=== PATIENT | female | born 1990 | race African-American/Black ===

== ENCOUNTER 2017-10-03 11:31 | Outpatient (CLI) | payer OTHER, SELFPAY ==
[2017-10-03 12:31] LABS: Appearance Urine UA CLEAR; Bilirubin Urine UA NEGATIVE (NEGATIVE); Color Urine UA YELLOW; Glucose Urine UA NEGATIVE (Normal); Ketones Urine UA NEGATIVE (NEGATIVE); Leukocyte Esterase Urine UA NEGATIVE (NEGATIVE); Nitrite Urine UA Negative (Negative); Occult Blood Urine UA NEGATIVE (Negative); Protein Urine UA NEGATIVE (Negative); Specific Gravity Urine UA 1.015 (1.000-1.035); Urobilinogen Urine UA 0.2 E.U./dL (0.2)
--- NOTE | 2017-10-03 13:00 | PM.OBTRLD ---
Visit Information Visit Information Date of evaluation: 10/03/17 Primary OB Provider: Pia Dye Reason for Evaluation: Yes other Comments/Additional reasons for admission: abdominal pain Objective Labs Labs: Laboratory Results - last 24 hr 10/03/17 12:00 Urine Color Yellow Urine Appearance Clear Urine pH 7.0 Ur Specific [place] 1.015 Urine Protein Negative Urine Glucose (UA) Negative Urine Ketones Negative Urine Occult Blood Negative Urine Nitrate Negative Urine Bilirubin Negative Urine Urobilinogen 0.2 Ur Leukocyte Esterase Negative Evaluation Evaluation Baseline heart rate: 140 Variability: Moderate (11-25) monitor accelerations: Present monitor decelerations: Absent Uterine Contraction Intensity: Mild Category of Tracing: I Laboratory results: Laboratory Tests 10/03/17 12:00 Urine Color Yellow Urine Appearance Clear Urine pH 7.0 Ur Specific [place] 1.015 Urine Protein Negative Urine Glucose (UA) Negative Urine Ketones Negative Urine Occult Blood Negative Urine Nitrate Negative Urine Bilirubin Negative Urine Urobilinogen 0.2 Ur Leukocyte Esterase Negative Diagnosis, Plan/Disposition Final Diagnosis (1) 35 weeks gestation of : Current Visit: Yes Status: Acute Plan/Disposition Plan: Reactive NST, no labor, UA negative Follow up in clinic as scheduled.
== END 2017-10-03 13:18 | disposition home or self-care (01) ==
LOC: LABOR 13:01 → OB 10-05 10:12
PROVIDERS: Family Medicine; Visit Provider Obstetrics & Gynecology
DX: O26.893 Other specified pregnancy related conditions, third trimester (principal); R10.9 Unspecified abdominal pain; Z3A.35 35 weeks gestation of pregnancy
CPT/HCPCS: 59025; 59050; 81003; G0378; G0379

== ENCOUNTER → 2017-10-10 16:08 | Outpatient (CLI) | payer OTHER, SELFPAY ==
[2017-10-11 13:17] LABS: Strep Grp B PCR NEG for Grp B Strep
== END ==
PROVIDERS: Visit Provider Family Medicine
DX: Z3A.36 36 weeks gestation of pregnancy (principal)
CPT/HCPCS: 87653

== ENCOUNTER 2017-10-17 11:25 | Outpatient (CLI) | payer OTHER, SELFPAY ==
--- NOTE | 2017-10-17 12:44 | PM.OBTRLD ---
Visit Information Visit Information Date of evaluation: 10/17/17 Primary OB Provider: Pia Dye On-call OB Provider: Lenore Fair Reason for Evaluation: Yes rule out labor [facility] Social History marital status: household members: spouse Smoking Status: Never smoker alcohol intake: former substance use type: does not use Evaluation Evaluation Baseline heart rate: 140 Variability: Moderate (11-25) monitor accelerations: Present monitor decelerations: Absent Category of Tracing: I Cervical dilation (cm): 0 Cervical effacement (%): 0 station: -3 Diagnosis, Plan/Disposition Final Diagnosis (1) 37 weeks gestation of : Current Visit: Yes Status: Acute Plan/Disposition Plan: Patient comes in concerned about abdominal and pelvic cramping. No contractions on monitor and cervix is long and closed. Patient was reassured routine precautions reviewed with the patient. She has a follow-up appointment on Sunday. OB Disposition: home
--- NOTE | 2017-10-17 12:47 | P.TNLD_ITS ---
Visit Information Visit Information Date of evaluation: 10/17/17 Primary OB Provider: Pia Dye On-call OB Provider: Lenore Fair Reason for Evaluation: Yes rule out labor [facility] Social History marital status: household members: spouse Smoking Status: Never smoker alcohol intake: former substance use type: does not use Evaluation Evaluation Baseline heart rate: 140 Variability: Moderate (11-25) monitor accelerations: Present monitor decelerations: Absent Category of Tracing: I Cervical dilation (cm): 0 Cervical effacement (%): 0 station: -3 Diagnosis, Plan/Disposition Final Diagnosis (1) 37 weeks gestation of : Current Visit: Yes Status: Acute Plan/Disposition Plan: Patient comes in concerned about abdominal and pelvic cramping. No contractions on monitor and cervix is long and closed. Patient was reassured routine precautions reviewed with the patient. She has a follow-up appointment on Sunday. OB Disposition: home
== END 2017-10-17 11:50 | disposition home or self-care (01) ==
LOC: OB 14:14
PROVIDERS: Visit Provider Family Medicine
DX: Z34.03 Encounter for supervision of normal first pregnancy, third trimester (principal); Z3A.37 37 weeks gestation of pregnancy
CPT/HCPCS: 59025; G0378; G0379

== ENCOUNTER 2017-11-05 15:33 | Outpatient (CLI) | payer OTHER, SELFPAY ==
--- NOTE | 2017-11-05 17:22 | PM.OBTRLD ---
Visit Information Visit Information Date of evaluation: 11/05/17 Primary OB Provider: Pia Dye Reason for Evaluation: Yes non-stress test non-stress test reason: other (abdominal pain) [facility] Social History marital status: household members: spouse Smoking Status: Never smoker alcohol intake: former substance use type: does not use Evaluation Evaluation Baseline heart rate: 135 Variability: Moderate (11-25) monitor accelerations: Present monitor decelerations: Absent Category of Tracing: I Diagnosis, Plan/Disposition Final Diagnosis (1) 40 weeks gestation of : Current Visit: No Status: Acute Plan/Disposition Plan: 27 year old at 40 weeks here with abdominal pain. Normal BP, ruled out pre-eclampsia. Reactive NST. Patient wishing to be induced. Will discuss postdates induction at appointment in two days.
--- NOTE | 2017-11-05 17:25 | P.TNLD_ITS ---
Visit Information Visit Information Date of evaluation: 11/05/17 Primary OB Provider: Pia Dye Reason for Evaluation: Yes non-stress test non-stress test reason: other ( abdominal pain) [facility] Social History marital status: household members: spouse Smoking Status: Never smoker alcohol intake: former substance use type: does not use Evaluation Evaluation Baseline heart rate: 135 Variability: Moderate (11-25) monitor accelerations: Present monitor decelerations: Absent Category of Tracing: I Diagnosis, Plan/Disposition Final Diagnosis (1) 40 weeks gestation of : Current Visit: No Status: Acute Plan/Disposition Plan: 27 year old at 40 weeks here with abdominal pain. Normal BP, ruled out pre- eclampsia. Reactive NST. Patient wishing to be induced. Will discuss postdates induction at appointment in two days.
== END 2017-11-05 16:42 | disposition home or self-care (01) ==
LOC: OB 11-07 13:00
PROVIDERS: PCP Family Medicine; Visit Provider Family Medicine
DX: Z34.03 Encounter for supervision of normal first pregnancy, third trimester (principal); Z3A.40 40 weeks gestation of pregnancy; G43.909 Migraine, unspecified, not intractable, without status migrainosus
CPT/HCPCS: 59025; G0378; G0379

== ENCOUNTER 2017-11-11 18:17 | Inpatient (IN) | payer OTHER, SELFPAY ==
[2017-11-11] MEDS: miSOPROStol 25 MCG TABLET VAG (20:00)
[2017-11-11] MEDS: LACTATED RINGERS 1,000 ML 100 ML IV (20:16)
[2017-11-11 21:08] LABS: Add Manual Diff / Slide Review NO; Basophils Percent Auto 0.4 % (0-2); Eosinophils Percent Auto 1.4 % (2-4); Hematocrit 37.9 % (36-46); Hemoglobin 12.9 g/dL (12.0-16.0); Lymphocytes Percent Auto 17.2 % (25-40); Mean Corpuscular HGB Conc 34.1 % (30-36); Mean Corpuscular Hemoglobin 29.6 PG (26-34); Mean Corpuscular Volume 86.7 fL (80-100); Monocytes Percent Auto 8.6 % (3-14); Neutrophils Absolute Auto 7400 /uL (3000-5900); Neutrophils Percent Auto 72.4 % (50-75); Platelet Count 274 X10^3/uL (150-400); Red Blood Cell Count 4.37 X10^6/uL (4.0-5.2); Red Cell Distribution Width 14.2 % (11.6-14.8); White Blood Cell Count 10.2 X10^3/uL (4.5-11.0)
[2017-11-11 21:16] VITALS: BP 118/64
[2017-11-11] MEDS: ZOLPIDEM 5 MG TABLET PO (22:07)
[2017-11-12] MEDS: LACTATED RINGERS 1,000 ML 100 ML IV ×2 (06:22→08:22)
--- NOTE | 2017-11-12 07:09 | PM.OBHP.1 ---
OB HPI Date/Time Date of admission: 11/12/17 Date Patient Seen: 11/12/17 Time Patient Seen: 07:25 History of Present Illness Chief complaint: labor & delivery : 2 Para: 0 Estimated Date of Delivery: 11/03/17 Estimated Gestational Age (weeks): 41w2d Narrative: Leatha Caraballo is a 27 year old female, at 41w2d. Transfer of care from the [facility] at 36 weeks of . Patient received regular care. Patient came in last night for cervical ripening and progressed to active labor after one dose of cytotec. SROM occurred at 3 AM today with clear fluid. Patient comfortable with epidural. 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) Preadmission Labs Blood type: A (+) positive -: Antibody screen: negative, GBS status: negative, HBsAG: negative, HIV: negative and RPR/VDLR: negative -: Chlamydia screen: not detected and Gonorrhea screen: not detected -: Rubella: immune HCT: 38.8 PAP: Normal Integrated screen: Normal Urine: Negative 1 hr GTT: 135 Narrative: Prior (ies) History: SAB 6 weeks Evaluation Evaluation Baseline heart rate: 125 Variability: Moderate (11-25) monitor accelerations: Present monitor decelerations: Early Contraction Frequency (minutes): 5 Uterine Contraction Intensity: Moderate Category of Tracing: I Cervical dilation (cm): 5 Cervical effacement (%): 100 station: 0 Laboratory results: Laboratory Tests 11/11/17 11/11/17 21:00 21:00 WBC 10.2 RBC 4.37 Hgb 12.9 Hct 37.9 MCV 86.7 MCH 29.6 MCHC 34.1 RDW 14.2 Plt Count 274 Neut % (Auto) 72.4 Lymph % (Auto) 17.2 L Amador % (Auto) 8.6 Eos % (Auto) 1.4 L Baso % (Auto) 0.4 Neut # (Auto) 7400 H Blood Type A Positive Antibody Screen Negative [facility] Social History marital status: household members: spouse Smoking Status: Never smoker alcohol intake: former substance use type: does not use Meds Home Medications Medication Instructions Recorded Confirmed Type Vitamin 1 tab PO DAILY 10/03/17 10/03/17 History Allergies Allergy/AdvReac Type Severity Reaction Status Date / Time ketorolac [From Toradol] Allergy Severe Swelling Verified 10/03/17 13:03 of Lip/Tongue/Throat Review of Systems Review of Systems All systems reviewed & are unremarkable except as noted in HPI and below Exam Const General: cooperative and healthy appearing HENIL Head: normal to inspection Ears: hearing grossly normal bilaterally Nose: external nose normal Face and sinus: normal facial exam Mouth: oral mucosae normal Eyes General: appearance normal, both eyes and all related structures Neck Neck: normal visual inspection Resp Effort & Inspection: normal respiratory effort Auscultation: clear to auscultation bilaterally Cardio Rate: regular rate Rhythm: regular rhythm Heart Sounds: S1 normal and S2 normal Manual OB Exam: dilated 5, effaced fully and station 0 Presentation: vertex Estimated Weight (lbs): 8 Amniotic Fluid: clear Neuro General: alert, awake and oriented x3 Extrem General: normal to inspection and edema (trace bilaterally) Objective Labs Result Diagrams: 11/11/17 21:00 Labs: Laboratory Results - last 24 hr 11/11/17 11/11/17 21:00 21:00 WBC 10.2 RBC 4.37 Hgb 12.9 Hct 37.9 MCV 86.7 MCH 29.6 MCHC 34.1 RDW 14.2 Plt Count 274 Neut % (Auto) 72.4 Lymph % (Auto) 17.2 L [place] % (Auto) 8.6 Eos % (Auto) 1.4 L Baso % (Auto) 0.4 Neut # (Auto) 7400 H Blood Type A Positive Antibody Screen Negative Assessment and Plan Plan: Plan: 27 year old at 41w2d, GBS neg, s/p one dose of Cytotec now in active labor. SROM clear at 3 AM. Contraction pattern is somewhat irregular with coupling intermittently. Plan - Epidural working well - Start pitocin - Frequent position changes with peanut ball
[2017-11-12] MEDS: OXYTOCIN PREMIX 30 UNIT/500 ML PLAST..BAG IV (07:40)
--- NOTE | 2017-11-12 11:06 | PM.OBPNLAB ---
Date/Time Date Patient Seen: 11/12/17 Time Patient Seen: 10:20 Pain Control Pain control: tolerating well and epidural Pelvic Exam Dilation (cm): 7 Effacement (%): 100 station: 0 Amniotic membrane status: Ruptured Contractions Monitor mode: External Pitocin rate (mU/min): 9 Contraction pattern: Irregular (q2-5 min with coupling) Status status: Category l Heart Rate Baseline: 135 Monitor Accelerations: Present Monitor Decelerations: Absent Monitor Variability: Moderate Assessment and Plan Assessment: active labor and induction ongoing Plan: continuous present management Comments: Encouraged frequent position changes. Suspect occiput posterior.
--- NOTE | 2017-11-12 15:14 | PM.OBPRVD ---
Delivery date: 11/12/17 Induction method: per misoprostol protocol Delivery augmentation: pitocin Delivery monitor: external FHT Route of delivery: Laceration description: Periurethral - 1st Degree Estimated blood loss (mL): 350 Anesthesia type: Epidural Narrative: Patient is a 27-year-old at 41w2d weeks who gave on 11/12/17 at 14:20. TREMAYNE: 11/03/17 Hospital problems: 41 weeks of Epidural anesthesia STAGE I: Labor Patient presented to the center for postdates induction and received one dose of Cytotec. Active labor began at 12:00 AM on 11/12/17. Patient requested an epidural. SROM at 3:00 AM with clear fluid. Contractions became irregular several hours later so pitocin was started with improvement in contraction pattern. Patient was complete at 12:52 PM. FHT were category 1 and 2 with periods of minimal variability and rare late decelerations. STAGE II: Delivery Second stage of labor lasted 1 hour and 28 minutes. Presentation was JASMYN with a nuchal cord which was reduced. Delivery was complicated by a 30 second shoulder dystocia which resolved with Miguel maneuver and suprapubic pressure though it took several seconds to deliver the infant after appearance of the anterior shoulder. A female infant was placed on mother's abdomen. Apgars were 6 and 9 at 1 and 5 minutes. STAGE III: Placenta/Cord The third stage of labor lasted 3 minutes. Placenta delivered after active management and appeared intact with a three vessel cord. Pitocin bolus given after delivery of placenta. There was a very small first degree periurethral laceration with was repaired with a single stitch of 4-0 vicryl due to bleeding. Fundus was firm after delivery and hemostasis achieved. EBL: 350 mL. Needle and sponge counts were correct. The vagina was inspected and no items were left in situ.
[2017-11-12] MEDS: ACETAMINOPHEN 325 MG TABLET 650 MG PO (17:55)
[2017-11-13] MEDS: OXYCODONE/ACETAMINOPHEN 5/325 TABLET 1 TAB PO ×2 (08:47→14:00)
[2017-11-13] MEDS: PRENATAL VIT,CALC/IRON/FOLIC 1 TABLET 1 TAB PO (08:48)
[2017-11-13] MEDS: DOCUSATE 250 MG CAPSULE PO (08:48)
--- NOTE | 2017-11-13 13:02 | P.DS_ITS ---
Discharge Providers Date of admission: 11/11/17 18:17 Primary care physician: Pia Dye DO Consults: 11/12/17 16:17 Consult to Compensation And Benefits Analyst Routine Comment: Discharge provider: Pia Dye DO Summary Date Patient Seen: 11/13/17 Time Patient Seen: 13:00 Hospital Course: 27-year-old now 1 status post spontaneous vaginal delivery at 41 weeks and 2 days on 11/12/17. Patient was brought in for cervical ripening the night of for post dates. She received one dose of Cytotec and progressed into active labor. Patient had an epidural for pain control. Required Pitocin augmentation of labor. There was a brief shoulder dystocia at delivery lasting approximately 30 seconds which was relieved with Miguel maneuver and suprapubic pressure. Apgars were six and nine at one and 5 minutes. Infant did well after delivery. A small periurethral laceration was repaired due to bleeding. course has been uncomplicated. 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 Patient is severely allergic to NSAIDs so received Percocet for pain control. initiated, recommended consultation in the clinic as an outpatient. Patient has ambulated, voided and stooled without difficulty. Exam Temperature 98.8? blood pressure 128/78 heart rate 88 respirations 16 General: Awake and alert, no acute distress. HEENT: NCAT, EOMI, moist oral mucosa CV: Regular rate and rhythm, no murmurs, rubs or gallops Lungs: CTAB, no wheezes, rales, or rhonchi Abdomen: Soft, nontender; bowel tones active; uterus firm 1 cm below umbilicus Extremities: Warm, no edema, 2+ pedal pulses bilaterally Patient counseled to call for fevers, severe pain or bleeding through more than a pad an hour. Follow up with Dr. Dye in clinic in six weeks. Peripartum Data Infant Delivery Method: Natural Vaginal Laceration description: Periurethral - 1st Degree complications: none Discharge Diagnosis (1) 41 weeks gestation of : Status: Acute (2) (spontaneous vaginal delivery): Status: Acute (3) History of epidural anesthesia: Status: Acute Status at Discharge Functional status at discharge: independent ambulation Overall status at discharge: patient is back to baseline Time Spent with Patient Total time spent providing and/or coordinating discharge services: Objective Labs Result Diagrams: 11/11/17 21:00 Discharge Plan Discharge Plan Patient Disposition: Home Discharge Med Rec/Prescriptions Prescriptions: New oxycodone-acetaminophen 5-325 mg Tablet 1 tab PO Q4HR PRN (Reason: pain) Qty: 20 RF: 0 docusate sodium 250 mg Capsule 250 mg PO DAILY Qty: 30 RF: 0 Continue Vitamin 1 tab PO DAILY RF: 0 Follow up/Referrals: Pia Dye DO [Primary Care Provider] - 6 Weeks Discharge Data Primary Care Provider: Pia Dye Attending Provider: Pia Dye Admit Date/Time: 11/11/17 18:17
[2017-11-13 16:17] VITALS: BP 118/64; PULSE 80; RESP 18; TEMP 36.6
== END 2017-11-13 18:15 | disposition home or self-care (01) | DRG 775 ==
PROVIDERS: Admitting Provider Family Medicine; PCP Family Medicine; Visit Provider Family Medicine
DX: O48.0 Post-term pregnancy (principal); Z3A.41 41 weeks gestation of pregnancy; O69.81X0 Labor and delivery complicated by cord around neck, without compression, not applicable or unspecified; Z37.0 Single live birth; O66.0 Obstructed labor due to shoulder dystocia
CPT/HCPCS: 01967; 59050; 59410; 85025; 86850; 86900; 86901; G0379; J2590

== ENCOUNTER 2017-12-17 14:52 | Emergency (ER) | payer OTHER, SELFPAY ==
[2017-12-17 15:00] VITALS: BP 108/70; PULSE 81; RESP 20; TEMP 36.6; O2SAT 95
--- NOTE | 2017-12-17 16:44 | ED_ITS ---
HPI - Abdominal Pain General Chief Complaint: Abdominal Pain Stated Complaint: constiptation x2 wks Time Seen by Provider: 12/17/17 16:44 Source: patient Mode of arrival: ambulatory Limitations: no limitations History of Present Illness HPI narrative: Patient is an otherwise healthy 27-year-old female who is 5 weeks . Is breast feeding. She states that for the past several days she has had constipation issues. She states she feels like she needs to go to the bathroom however it is painful for her to go to the bathroom. Does have some bright red blood. She states she has had a hemorrhoid which she was able to reduce. No nausea vomiting. Has developed some abdominal pain lower over the past couple days. Related Data Previous Rx's Medication Instructions Recorded sodium phosphates [Fleet Enema] 118 ml [place] DAILY PRN #133 ml 12/17/17 Allergies Allergy/AdvReac Type Severity Reaction Status Date / Time ketorolac [From Toradol] Allergy Severe Swelling Verified 10/03/17 13:03 of Lip/Tongue/Throat Review of Systems Constitutional Denies fatigue, Denies fever(s) and Denies headache(s) ENT Ears, Nose, Mouth, and Throat: Denies headache(s) Cardiovascular Denies chest pain and Denies dyspnea Respiratory Denies dyspnea Gastrointestinal Gastrointestinal: Reports abdominal pain, Reports constipation, Denies diarrhea , Denies nausea and Denies vomiting Genitourinary Denies dysuria and Denies vaginal discharge Musculoskeletal Reports back pain (Lower back), Denies myalgias and Denies arthralgias Integumentary/Breasts Denies lesions and Denies rash Neurologic Denies headache(s) Endocrine Denies fatigue Hematologic/Lymphatic Denies easy bleeding and Denies easy bruising [facility] Medical History Healthy adult (Acute) Spontaneous vaginal delivery (Resolved) Social History marital status: household members: spouse Smoking Status: Never smoker alcohol intake: former substance use type: does not use Exam Initial Vital Signs Initial Vital Signs: Vital Signs Temperature 97.9 F 12/17/17 15:00 Pulse Rate 81 12/17/17 15:00 Respiratory Rate 20 12/17/17 15:00 Blood Pressure 108/70 12/17/17 15:00 Pulse Oximetry 95 12/17/17 15:00 Const General: cooperative, healthy appearing, comfortable, well developed, well groomed and No acute distress Orientation: alert, awake and oriented x3 HENMT Head: normal to inspection and normocephalic Resp Effort & Inspection: normal respiratory effort GI Inspection: non-distended Palpation: soft, No firm and No tender Back/Spine/Pelvis Back: No CVA tenderness Skin Lesions: no lesions Rashes: no rashes Neuro General: alert, awake and oriented x3 Extrem General: normal to inspection and capillary refill normal Psych Appearance: grossly normal and well kempt Course Vital Signs - 8 hr 12/17/17 15:00 Temperature 97.9 F Pulse Rate 81 Respiratory Rate 20 Blood Pressure 108/70 Pulse Oximetry 95 MDM - Abdominal Pain MDM Narrative Medical decision making narrative: Has a benign abdominal exam. Discussed the options with the patient to include oral laxatives versus enemas. We did discuss that she could have an enema here in the emergency department. We also discussed that she could be manually disimpacted. After this discussion the patient opted to be discharged with a prescription for an enema and try this at home prior to any interventions here in the emergency department. Her history and physical exam was consistent with constipation. Doubt other intra- abdominal surgical pathology to include bowel obstructions. Will hold on a CT scan for now. The patient was given return precautions. She expressed understanding and agreement with plan. Discharge Plan Departure Patient Disposition: Home Clinical Impression: Constipation Discharge Date/Time: 12/17/17 17:15 Interventions: ED Discharge Assessment Last Done: 12/17/17 17:14 Instructions: Constipation (Alternative Therapy), Constipation Activity Restrictions/Additional Instructions: Like we discussed here in the emergency department make sure that you stay hydrated. I would also make sure that you add the stool softeners and or a laxative by mouth. Take the enema as directed. Return to the emergency department for any new or worsening symptoms Prescriptions: New sodium phosphates [Fleet Enema] 19-7 gram/118 mL enema 118 ml [place] DAILY PRN (Reason: constipation) Qty: 133 RF: 0
== END 2017-12-17 17:15 | disposition home or self-care (01) ==
PROVIDERS: Emergency Provider Emergency Medicine; PCP Family Medicine
DX: K59.00 Constipation, unspecified (principal)
CPT/HCPCS: 99282

== ENCOUNTER 2018-01-18 15:55 | Emergency (ER) | payer OTHER, SELFPAY ==
[2018-01-18 15:58] VITALS: BP 110/85; PULSE 90; RESP 16; TEMP 36.7; O2SAT 99; BMI 30.8
--- NOTE | 2018-01-18 16:44 | PC.NURSE ---
Pt reports has pain along spine for about 2 inches right over pt had epidural during recent . Reports spasms are intermittent and extend to the left of spinal column.
[2018-01-18 17:30] VITALS: BP 110/72; PULSE 76; RESP 18; TEMP 36.7; O2SAT 100
--- NOTE | 2018-01-18 17:47 | ED_ITS ---
HPI - Back Pain/Injury <Dari Perdue PA-C - Last Filed: 01/18/18 22:00> General Chief Complaint: Back Pain/Injury Stated Complaint: MIDDLE BACK PAIN Time Seen by Provider: 01/18/18 17:18 Source: patient Mode of arrival: ambulatory Limitations: no limitations History of Present Illness HPI Narrative: This healthy 27-year-old female who delivered a baby girl 11/12 complains of persistent pain since then at epidural insertion site. She states that pain is present all the time, but she also gets spasms on the left side of the area that are worse when she lies down at night, or with bending and those tend to be very sharp and crampy. She states that pain and spasms have remained localized this whole time and she has not had any acute worsening or radiation into her extremities. She has not had any fever and cannot tell that she has had any swelling or rash. She has never had back pain prior. She denies any urinary symptoms or bowel changes. She has not started using contraception again yet, states not impossible that she could be . She states that her PCP evaluated this and has prescribed Percocet which helped a lot when she takes it, but she is concerned about a significant underlying problem and does not want to continue taking it if there is something that needs to be treated. She states that the only other symptom she has had is some ringing in her ears at times. Related Data Previous Rx's Medication Instructions Recorded oxycodone-acetaminophen [Percocet] 1 tab PO Q6H PRN #3 tab 01/18/18 Allergies Allergy/AdvReac Type Severity Reaction Status Date / Time ketorolac [From Toradol] Allergy Severe Swelling Verified 01/18/18 16:31 of Lip/Tongue/Throat Review of Systems <Dari Perdue PA-C - Last Filed: 01/18/18 22:00> Review of Systems All systems reviewed & are unremarkable except as noted in HPI and below Exam <Dari Perdue PA-C - Last Filed: 01/18/18 22:00> Narrative Exam Narrative: GENERAL APPEARANCE: Patient standing and holding her baby, in no distress PULMONARY: Lungs clear to auscultation bilaterally CV: Regular rhythm regular without murmur, normal S1 and S2, no S3 or S4 MUSCULOSKELETAL: point tender over the mid thoracic spine. No rash or lesions. She has a little bit of tenderness over the corresponding left thoracic paraspinal musculature which may be minimally enlarged compared to left. No circumscribed edema. No tenderness elsewhere over the spine. She has full range of motion of the trunk. Full range of motion of the extremities and normal gait. NEUROLOGIC: Extremities are warm and pink, sensation is grossly intact Initial Vital Signs Initial Vital Signs: Vital Signs Temperature 98.0 F 01/18/18 15:58 Pulse Rate 90 01/18/18 15:58 Respiratory Rate 16 01/18/18 15:58 Blood Pressure 110/85 01/18/18 15:58 Pulse Oximetry 99 01/18/18 15:58 <Torres Fitch DO - Last Filed: 01/18/18 22:24> Initial Vital Signs Initial Vital Signs: Vital Signs Temperature 98.0 F 01/18/18 15:58 Pulse Rate 90 01/18/18 15:58 Respiratory Rate 16 01/18/18 15:58 Blood Pressure 110/85 01/18/18 15:58 Pulse Oximetry 99 01/18/18 15:58 Course <Dari Perdue PA-C - Last Filed: 01/18/18 22:00> Additional Information: patient has not had any acute change in her pain today. We advised MRI after I reviewed concerns with Dr. Fitch. Patient initially agreed to this, but when I advised it would be a 2 hr wait for MRI she stated that she did not want to wait to have this. Since she has not had any acute changes, nor any new symptoms such as fever or swelling per her history, advised this would be reasonable but needs follow-up with Dr. Dye early next week to discuss continued pain and plan further workup. we also placed lidocaine patch and I did give her just a few Percocet for the weekend since she had been using these previously with at least temporary success. She agreed to return if any acutely worsening symptoms Orders Ordered: ED Orders 01/18/18 17:55 XR thoracic spine 3V Stat 01/18/18 18:07 MR thoracic spine wo con Stat Discontinued Medications Lidocaine (Lidoderm) 1 each TOP NOW ONE Stop: 01/18/18 17:56 Last Admin: 01/18/18 18:30 Dose: 1 each Oxycodone/Acetaminophen (Percocet 5/325) 1 tab PO NOW ONE Stop: 01/18/18 18:09 Last Admin: 01/18/18 18:29 Dose: 1 tab Vital Signs - 8 hr 01/18/18 15:58 01/18/18 17:30 01/18/18 18:52 Temperature 98.0 F 98.0 F 98.0 F Pulse Rate 90 76 93 H Respiratory Rate 16 18 16 Blood Pressure 110/85 Blood Pressure [Left Arm] 110/72 111/74 Pulse Oximetry 99 100 99 <Torres Fitch DO - Last Filed: 01/18/18 22:24> Orders Ordered: ED Orders 01/18/18 17:55 XR thoracic spine 3V Stat 01/18/18 18:07 MR thoracic spine wo con Stat Discontinued Medications Lidocaine (Lidoderm) 1 each TOP NOW ONE Stop: 01/18/18 17:56 Last Admin: 01/18/18 18:30 Dose: 1 each Oxycodone/Acetaminophen (Percocet 5/325) 1 tab PO NOW ONE Stop: 01/18/18 18:09 Last Admin: 01/18/18 18:29 Dose: 1 tab Vital Signs - 8 hr 01/18/18 15:58 01/18/18 17:30 01/18/18 18:52 Temperature 98.0 F 98.0 F 98.0 F Pulse Rate 90 76 93 H Respiratory Rate 16 18 16 Blood Pressure 110/85 Blood Pressure [Left Arm] 110/72 111/74 Pulse Oximetry 99 100 99 MDM - Back Pain/Injury <Dari Perdue PA-C - Last Filed: 01/18/18 22:00> Lab Data Point of Care Testing Test Results Negative Urine Dip Bedside Urine Glucose Negative Bedside Urine Bilirubin - Negative Bedside Urine Ketone - Negative Urine Specific [place] 1.025 Bedside Urine Occult Blood - Negative Bedside Urine pH 6.0 Bedside Urine Protein - Negative Bedside Urine Urobilinogen - Negative Bedside Urine Nitrite - Negative Bedside Urine Leukocytes - Negative Esterase Imaging Data thoracic: Radiologist's impression: [address] [address] XRay Report Signed Patient: Archie Caraballo#: [id number] : 1990Acct:[id number] Age/Sex: 27 / FDate of Service: 01/18/18 Loc: ED Accession Number: [id number] Procedure: XR thoracic spine 3V Ordering Provider: Dari Perdue P.A-C PROCEDURE: XR THORACIC SPINE 3V INDICATIONS: thoracic pain TECHNIQUE: 3 views of the thoracic spine were acquired. COMPARISON: None. FINDINGS: Bones: No fractures or dislocations. No suspicious bony lesions. Mild diffuse endplate sclerosis. Mild right dextrocurvature Soft tissues: No paravertebral stripe thickening. IMPRESSION: Mild right dextrocurvature No fracture. Dictated by: Bhargav Quijano M.D. on 01/18/2018 at 18:33 Approved by: Bhargav Quijano M.D. on 01/18/2018 at 18:36 <Torres Fitch DO - Last Filed: 01/18/18 22:24> Lab Data Point of Care Testing Test Results Negative Urine Dip Bedside Urine Glucose Negative Bedside Urine Bilirubin - Negative Bedside Urine Ketone - Negative Urine Specific [place] 1.025 Bedside Urine Occult Blood - Negative Bedside Urine pH 6.0 Bedside Urine Protein - Negative Bedside Urine Urobilinogen - Negative Bedside Urine Nitrite - Negative Bedside Urine Leukocytes - Negative Esterase Discharge Plan Departure Patient Disposition: Home Clinical Impression: Chronic thoracic spine pain Discharge Date/Time: 01/18/18 19:13 Interventions: ED Discharge Assessment Last Done: 01/18/18 19:11 Instructions: DI for Back Spasm Activity Restrictions/Additional Instructions: since you have been taking Percocet and that has been helpful, I have prescribed a few for you to have if needed over the weekend. Remember not to take that and drive as it may make you sleepy. Please try adding over-the- counter 4% lidocaine patches (there are multiple brands of this, such as salon pas). we have recommended an MRI today, but since you did not want to wait for that and pain has not acutely worsened, please call Dr. Dye's office on Sunday and let them know you were seen in the ED and need follow-up. you should return as we talked about over the weekend if you have any sudden acute worsening of your pain, or new symptoms such as swelling or fever Prescriptions: New oxycodone-acetaminophen [Percocet] 5-325 mg tablet 1 tab PO Q6H PRN (Reason: pain) Qty: 3 RF: 0 Referrals: Pia Dye DO [Primary Care Provider] - <Torres Fitch DO - Last Filed: 01/18/18 22:24> Cosign ED Attending Cosignature Attestation: I was immediately available in the department for consultation. Documentation has been reviewed. I agree with assessment and plan.
--- NOTE | 2018-01-18 17:55 | DI.RAD.S_ITS ---
PROCEDURE: XR THORACIC SPINE 3V INDICATIONS: thoracic pain TECHNIQUE: 3 views of the thoracic spine were acquired. COMPARISON: None. FINDINGS: Bones: No fractures or dislocations. No suspicious bony lesions. Mild diffuse endplate sclerosis. Mild right dextrocurvature Soft tissues: No paravertebral stripe thickening. IMPRESSION: Mild right dextrocurvature No fracture. Dictated by: Bhargav Quijano M.D. on 01/18/2018 at 18:33 Approved by: Bhargav Quijano M.D. on 01/18/2018 at 18:36
[2018-01-18] MEDS: OXYCODONE/ACETAMINOPHEN 5/325 TABLET 1 TAB PO (18:29)
[2018-01-18] MEDS: LIDOCAINE PATCH 1 EACH ADH..PATCH TOP (18:30)
[2018-01-18 18:52] VITALS: BP 111/74; PULSE 93; RESP 16; TEMP 36.7; O2SAT 99
== END 2018-01-18 19:13 | disposition home or self-care (01) ==
PROVIDERS: Emergency Provider Internal Medicine; PCP Family Medicine
DX: M54.6 Pain in thoracic spine (principal); G89.29 Other chronic pain
CPT/HCPCS: 72072; 81003; 81025; 99282; 99284

== ENCOUNTER 2018-05-15 08:11 | Emergency (ER) | payer OTHER, SELFPAY ==
[2018-05-15 08:23] VITALS: BP 120/70; PULSE 82; RESP 18; TEMP 36.6; O2SAT 98; BMI 30.2
--- NOTE | 2018-05-15 08:59 | ED_ITS ---
HPI - Nausea/Vomiting/Diarrhea General Chief complaint: Nausea/Vomiting/Diarrhea Stated complaint: stomach flu Time Seen by Provider: 05/15/18 08:27 Source: patient Mode of arrival: ambulatory Limitations: no limitations History of Present Illness HPI Narrative: Patient is an otherwise healthy 27-year-old female here for evaluation of approximately 24 hr of diarrhea and then approximately 12 hr of multiple episodes of vomiting. No recent travel. No recent antibiotic use. Has not tried anything for her symptoms. She is here today with generalized abdominal pain and headache. She states she vomited whenever she tries to eat anything. No fevers. Related Data Home Medications Medication Instructions Recorded Confirmed PNV cmb#95-ferrous fumarate-FA 1 tab PO DAILY 05/15/18 05/15/18 [] Trinessa 1 tab PO QPM 05/15/18 05/15/18 diclofenac sodium 1 applic TOPICAL DIRECTED 05/15/18 05/15/18 ibuprofen 600 mg PO TID PRN 05/15/18 05/15/18 Previous Rx's Medication Instructions Recorded ondansetron 4 mg PO Q6-8H PRN #10 tab 05/15/18 Allergies Allergy/AdvReac Type Severity Reaction Status Date / Time ketorolac [From Toradol] Allergy Severe Swelling Verified 02/01/18 11:48 of Lip/Tongue/Throat Review of Systems Constitutional Denies fever(s) and Reports headache(s) ENT Ears, Nose, Mouth, and Throat: Reports headache(s) Cardiovascular Denies chest pain and Denies dyspnea Respiratory Denies dyspnea Gastrointestinal Gastrointestinal: Reports abdominal pain, Reports diarrhea, Reports nausea and Reports vomiting Genitourinary Denies dysuria and Denies vaginal discharge Musculoskeletal Denies myalgias and Denies arthralgias Integumentary/Breasts Denies rash Neurologic Denies behavioral changes and Reports headache(s) Psychiatric Denies behavioral changes Hematologic/Lymphatic Denies easy bleeding and Denies easy bruising PFSH Social History marital status: household members: spouse Smoking Status: Never smoker alcohol intake: former substance use type: does not use Exam Initial Vital Signs Initial Vital Signs: Vital Signs Temperature 97.8 F 05/15/18 08:23 Pulse Rate 82 05/15/18 08:23 Respiratory Rate 18 05/15/18 08:23 Blood Pressure 120/70 05/15/18 08:23 Pulse Oximetry 98 05/15/18 08:23 Const General: cooperative, healthy appearing, comfortable, well developed, well groomed and No acute distress Orientation: alert, awake and oriented x3 HENMT Head: normal to inspection and normocephalic Resp Effort & Inspection: normal respiratory effort Auscultation: clear to auscultation bilaterally Cardio Rate: regular rate Rhythm: regular rhythm GI Inspection: non-distended Palpation: soft, No firm, No guarding, No rigid and tender (Generalized tenderness) Skin Lesions: no lesions Rashes: no rashes Neuro General: alert and awake Cognition: normal cognition Speech: speech normal Extrem General: normal to inspection and capillary refill normal Psych Appearance: grossly normal and well kempt Course Orders Ordered: ED Orders 05/15/18 08:52 Complete Blood Count AUTO DIFF Stat Comprehensive Metabolic Panel Stat Lipase Stat Discontinued Medications Sodium Chloride (Normal Saline 0.9%) 1,000 mls @ 1,000 mls/hr IV BOLUS ONE Stop: 05/15/18 09:58 Last Infusion: 05/15/18 10:24 Dose: 0 mls/hr Admin: 05/15/18 09:18 Dose: 1,000 mls/hr Ondansetron HCl (Zofran) 4 mg IV NOW ONE Stop: 05/15/18 09:00 Last Admin: 05/15/18 09:17 Dose: 4 mg Vital Signs - 8 hr 05/15/18 08:23 Temperature 97.8 F Pulse Rate 82 Respiratory Rate 18 Blood Pressure 120/70 Pulse Oximetry 98 MDM - Nausea/Vomiting/Diarrhea Lab Data Attestation: I reviewed the patient's lab results. Result diagrams: 05/15/18 08:52 05/15/18 08:52 Lab Results 05/15/18 05/15/18 Range/Units 08:52 08:52 WBC 6.3 (4.5-11.0) X10^3/uL RBC 4.63 (4.0-5.2) X10^6/uL Hgb 13.4 (12.0-16.0) g/dL Hct 40.3 (36-46) % MCV 87.2 (80-100) fL MCH 28.9 (26-34) PG MCHC 33.1 (30-36) % RDW 14.0 (11.6-14.8) % Plt Count 386 (150-400) X10^3/uL Neut % (Auto) 63.0 (50-75) % Lymph % (Auto) 23.9 L (25-40) % [place] % (Auto) 11.8 (3-14) % Eos % (Auto) 0.7 L (2-4) % Baso % (Auto) 0.6 (0-2) % Neut # (Auto) 3900 (5772-7949) /uL Lymph # (Auto) 1500 (4459-1741) /uL [place] # (Auto) 700 (0-900) /uL Eos # (Auto) 0 (0-450) /uL Baso # (Auto) 0 (0-100) /uL Sodium 140 (137-145) mmol/L Potassium 3.6 (3.4-5.1) mmol/L Chloride 101 (98-107) mmol/L Carbon Dioxide 30 (22-32) mmol/L BUN 10 (7-17) mg/dL Creatinine 0.80 (0.52-1.04) mg/dL Estimated GFR > 60.0 (>60) mL/min BUN/Creatinine Ratio 12.5 (6-22) Glucose 81 (70-100) mg/dL Calcium 8.7 (8.4-10.2) mg/dL Total Bilirubin 0.2 (0.2-1.3) mg/dL AST 26 (14-36) IU/L ALT 28 (9-52) IU/L Alkaline Phosphatase 61 (38-126) U/L Total Protein 7.7 (6.3-8.2) g/dL Albumin 4.3 (3.5-5.0) g/dL Globulin 3.4 (1.7-4.1) g/dL Albumin/Globulin Ratio 1.3 (1.0-2.8) Lipase 49 (23-300) U/L [facility] Narrative Medical decision making narrative: Patient states that she does feel better afte r the fluids. Her headache is gone. She has tolerated small amounts of fluids. She did have a loose bowel movement here in the ER. Will send home with a prescription for Zofran. She was also instructed on the use of Imodium/loperamide if needed. She was given return precautions. Will hold on further workup for now. She expressed understanding and agreement with plan. Discharge Plan Departure Patient Disposition: Home Clinical Impression: Nausea & vomiting Qualifiers: Vomiting type: unspecified Vomiting Intractability: non-intractable Qualified Code(s): R11.2 - Nausea with vomiting, unspecified Diarrhea Qualifiers: Diarrhea type: unspecified type Qualified Code(s): R19.7 - Diarrhea, unspecified Instructions: Diarrhea, DI for Vomiting -- Adult Activity Restrictions/Additional Instructions: Use the nausea medication as needed. Like we discussed you can purchase [id number] Imodium/loperamide and use it as directed for any diarrhea. Return to the emergency department for any new or worsening symptoms Prescriptions: New ondansetron 4 mg tablet,disintegrating 4 mg PO Q6-8H PRN (Reason: nausea and vomiting) Qty: 10 RF: 0 No Action ibuprofen 600 mg tablet 600 mg PO TID PRN (Reason: pain) RF: 0 diclofenac sodium 1 % gel 1 applic Topical DIRECTED RF: 0 PNV cmb#95-ferrous fumarate-FA [] 28 mg iron- 800 mcg Tablet 1 tab PO DAILY RF: 0 Trinessa 1 tab PO QPM RF: 0 Referrals: Pia Dye DO [Primary Care Provider] -
[2018-05-15 09:05] LABS: Add Manual Diff / Slide Review NO; Basophils Absolute Auto 0 /uL (0-100); Basophils Percent Auto 0.6 % (0-2); Eosinophils Absolute Auto 0 /uL (0-450); Eosinophils Percent Auto 0.7 % (2-4); Hematocrit 40.3 % (36-46); Hemoglobin 13.4 g/dL (12.0-16.0); Lymphocytes Absolute Auto 1500 /uL (1100-4500); Lymphocytes Percent Auto 23.9 % (25-40); Mean Corpuscular HGB Conc 33.1 % (30-36); Mean Corpuscular Hemoglobin 28.9 PG (26-34); Mean Corpuscular Volume 87.2 fL (80-100); Monocytes Absolute Auto 700 /uL (0-900); Monocytes Percent Auto 11.8 % (3-14); Neutrophils Absolute Auto 3900 /uL (1500-7000); Platelet Count 386 X10^3/uL (150-400); Red Blood Cell Count 4.63 X10^6/uL (4.0-5.2); White Blood Cell Count 6.3 X10^3/uL (4.5-11.0)
[2018-05-15 09:11] LABS: Alanine Aminotransferase 28 IU/L (9-52); Albumin 4.3 g/dL (3.5-5.0); Albumin Globulin Ratio 1.3 (1.0-2.8); Alkaline Phosphatase 61 U/L (38-126); Aspartate Aminotransferase 26 IU/L (14-36); BUN Creatinine Ratio 12.5 (6-22); Bilirubin Total 0.2 mg/dL (0.2-1.3); Blood Urea Nitrogen 10 mg/dL (7-17); Calcium 8.7 mg/dL (8.4-10.2); Carbon Dioxide 30 mmol/L (22-32); Chloride 101 mmol/L (98-107); Estimated Glomerular Filt Rate > 60.0 mL/min (>60); Globulin 3.4 g/dL (1.7-4.1); Glucose 81 mg/dL (70-100); HEMOLYSIS < 15 (0-50); Lipase 49 U/L (23-300); Potassium 3.6 mmol/L (3.4-5.1); Sodium 140 mmol/L (137-145); Total Protein 7.7 g/dL (6.3-8.2)
[2018-05-15] MEDS: ONDANSETRON 4 MG/2 ML INJ IV (09:17)
[2018-05-15] MEDS: SODIUM CHLORIDE 0.9% 1,000 ML 1000 ML IV (09:18)
[2018-05-15 10:38] VITALS: BP 114/66; PULSE 80; RESP 18; O2SAT 100
[2018-05-15 11:01] VITALS: BP 104/67; PULSE 74; RESP 18; TEMP 36.4; O2SAT 99
== END 2018-05-15 11:01 | disposition home or self-care (01) ==
PROVIDERS: Emergency Provider Emergency Medicine; PCP Family Medicine
DX: R11.2 Nausea with vomiting, unspecified (principal); R19.7 Diarrhea, unspecified
CPT/HCPCS: 36591; 80053; 83690; 85025; 96361; 96374; 99283; 99284; J2405

== ENCOUNTER 2018-05-20 15:13 | Emergency (ER) | payer OTHER, SELFPAY ==
[2018-05-20 15:28] VITALS: BP 112/77; PULSE 95; RESP 16; TEMP 37.2; O2SAT 96
--- NOTE | 2018-05-20 18:04 | PC.NURSE ---
Patient reports pain in left pointer finger, no injury or trauma. Mild swelling noted, no pain in joints. Denies fever, chills or any other symptoms
--- NOTE | 2018-05-20 18:22 | ED.SKABFB ---
HPI - Skin/Abscess/Foreign Bdy <Dari Perdue PA-C - Last Filed: 05/20/18 22:02> General Chief complaint: Skin/Abscess/Foreign Body Stated complaint: index finger left hand is swollen and hurting Time Seen by Provider: 05/20/18 17:30 Source: patient Mode of arrival: ambulatory Limitations: no limitations History of Present Illness HPI narrative: This 27 year old female comes to ED due to 2 day history of pain between her right 2nd and 3rd fingers. She states that this is only in the space between the fingers, denies any joint pain or swelling there or elsewhere in the hand. She denies any redness. She denies any bite or wound. She has not had fever. She denies any pain in other areas or joints. She is not breast feeding currently. Denies any possibility of Related Data Home Medications Medication Instructions Recorded Confirmed PNV cmb#95-ferrous fumarate-FA 1 tab PO DAILY 05/15/18 05/20/18 [] Trinessa 1 tab PO QPM 05/15/18 05/20/18 diclofenac sodium 1 applic TOPICAL DIRECTED 05/15/18 05/20/18 ibuprofen 600 mg PO TID PRN 05/15/18 05/20/18 Previous Rx's Medication Instructions Recorded ondansetron 4 mg PO Q6-8H PRN #10 tab 05/15/18 meloxicam [Mobic] 15 mg PO DAILY #10 tab 05/20/18 Allergies Allergy/AdvReac Type Severity Reaction Status Date / Time ketorolac [From Toradol] Allergy Severe Swelling Verified 02/01/18 11:48 of Lip/Tongue/Throat Review of Systems <Dari Perdue PA-C - Last Filed: 05/20/18 22:02> Review of Systems ROS Unobtainable: All systems reviewed & are unremarkable except as noted in HPI and below PFSH <Dari Perdue PA-C - Last Filed: 05/20/18 22:02> Medical History Healthy adult (Acute) Spontaneous vaginal delivery (Resolved) Social History marital status: household members: spouse Smoking Status: Never smoker alcohol intake: former substance use type: does not use Exam <JEOVANNY Ford Last Filed: 05/20/18 22:02> Narrative Exam Narrative: GENERAL APPEARANCE: Patient sitting comfortably, in no distress. LUNGS: Clear to auscultation bilaterally. HEART: Rate and rhythm regular without murmur, normal S1 and S2, no S3 or S4. MUSCULOSKELETAL: right hand there is no joint effusion. There is no point tenderness anywhere over the hand or joints aside from minimal at the 2/3 interdigital space. She has full range of motion of all of the fingers with a little bit of an point tenderness in the right pointer finger on full flexion extension. Sculpture Conservator strength is 5/5. tendon strength 5/5 against resistance throughout right 2nd and 3rd finger. No tenderness over the wrist, full range of motion. Initial Vital Signs Initial Vital Signs: Vital Signs Temperature 98.9 F 05/20/18 15:28 Pulse Rate 95 H 05/20/18 15:28 Respiratory Rate 16 05/20/18 15:28 Blood Pressure 112/77 05/20/18 15:28 Pulse Oximetry 96 05/20/18 15:28 <Torres Fitch DO - Last Filed: 05/21/18 03:48> Initial Vital Signs Initial Vital Signs: Vital Signs Temperature 98.9 F 05/20/18 15:28 Pulse Rate 95 H 05/20/18 15:28 Respiratory Rate 16 05/20/18 15:28 Blood Pressure 112/77 05/20/18 15:28 Pulse Oximetry 96 05/20/18 15:28 Course <JEOVANNY Ford Last Filed: 05/20/18 22:02> Vital Signs - 8 hr 05/20/18 15:28 05/20/18 18:55 Temperature 98.9 F 97.7 F Pulse Rate 95 H 68 Respiratory Rate 16 18 Blood Pressure 112/77 113/81 Pulse Oximetry 96 100 <DO Karoline Damon Last Filed: 05/21/18 03:48> Vital Signs - 8 hr 05/20/18 15:28 05/20/18 18:55 Temperature 98.9 F 97.7 F Pulse Rate 95 H 68 Respiratory Rate 16 18 Blood Pressure 112/77 113/81 Pulse Oximetry 96 100 Discharge Plan Departure Patient Disposition: Home Clinical Impression: Hand pain Qualifiers: Laterality: right Qualified Code(s): M79.641 - Pain in right hand Discharge Date/Time: 05/20/18 18:55 Interventions: ED Discharge Assessment Last Done: 05/20/18 18:55 Instructions: DI for Hand Pain Activity Restrictions/Additional Instructions: the source of your hand pain today is not clear. I agree with you that there do not seem to be any wounds or signs of infection, and your joints do not appear to have swelling. I have prescribed a once daily anti-inflammatory pain reliever called meloxicam for you. You were noted to have a reaction to Toradol (ketorolac ), in the past but not to other anti-inflammatories such as ibuprofen so we can try this, But please discontinue it if any rash or swelling. Please take this for the next few days to see if it helps with the pain. Please follow-up with your primary care provider for recheck in a few days to determine whether this has improved or whether any other testing is needed. Prescriptions: New meloxicam [Mobic] 15 mg tablet 15 mg PO DAILY Qty: 10 RF: 0 No Action ibuprofen 600 mg tablet 600 mg PO TID PRN (Reason: pain) RF: 0 diclofenac sodium 1 % gel 1 applic Topical DIRECTED RF: 0 PNV cmb#95-ferrous fumarate-FA [] 28 mg iron- 800 mcg Tablet 1 tab PO DAILY RF: 0 Trinessa 1 tab PO QPM RF: 0 ondansetron 4 mg tablet,disintegrating 4 mg PO Q6-8H PRN (Reason: nausea and vomiting) Qty: 10 RF: 0 Referrals: [facility] [Provider Group] <Torres Fitch, - Last Filed: 05/21/18 03:48> Cosign ED Attending Matilda Attestation: I was immediately available in the department for consultation. Documentation has been reviewed. I agree with assessment and plan.
[2018-05-20 18:55] VITALS: BP 113/81; PULSE 68; RESP 18; TEMP 36.5; O2SAT 100
== END 2018-05-20 18:55 | disposition home or self-care (01) ==
PROVIDERS: Emergency Provider Internal Medicine; PCP Family Medicine
DX: M79.641 Pain in right hand (principal)
CPT/HCPCS: 99282